=== PATIENT | female | born 1975 | race Caucasian/White ===

== ENCOUNTER 2018-03-29 11:21 | Emergency (ER) | payer MEDICAID, OTHER ==
[2018-03-29] MEDS: SOD CHLORIDE 0.9% 1,000 ML IV (13:18)
[2018-03-29] MEDS: DEXAMETHASONE 10 MG/ML 1 ML INJ IV (13:18)
[2018-03-29] MEDS: KETOROLAC 30 MG INJ IV (13:19)
[2018-03-29] MEDS: CLINDAMYCIN 600 MG/D5W (PMX) 50 ML IVPB (13:38)
== END 2018-03-29 14:35 | disposition home or self-care (01) ==
LOC: FTE 11:21
DX: J02.9 Acute pharyngitis, unspecified (principal)
CPT/HCPCS: 36415; 96374; 96375; 99284-25

== ENCOUNTER 2018-04-01 09:35 | Emergency (ER) | payer MEDICAID ==
[2018-04-01] MEDS: ONDANSETRON 4 MG INJ IV (11:31)
[2018-04-01] MEDS: morphine 4 MG/ML VIAL IV (11:31)
[2018-04-01 11:40] LABS: ADD MAN DIFF? NO
[2018-04-01 11:43] LABS: BASOPHIL # 0.1 10^3/ul (0.0-0.1); BASOPHILS % 0.9 % (0.0-2.0); EOSINOPHILS # 0.1 10^3/ul (0.0-0.5); EOSINOPHILS % 1.2 % (0.0-7.0); HEMATOCRIT 40.4 % (37.0-47.0); HEMOGLOBIN 13.2 g/dl (12.0-16.0); LYMPHOCYTES # 2.5 10^3/ul (0.8-2.9); LYMPHOCYTES % 44.3 % (15.0-51.0); MEAN CORPUSCULAR HEMOGLOBIN 27.2 pg (29.0-33.0); MEAN CORPUSCULAR HGB CONC 32.7 g/dl (32.0-37.0); MEAN CORPUSCULAR VOLUME 83.3 fl (82.0-101.0); MONOCYTE # 0.6 10^3/ul (0.3-0.9); MONOCYTES % 10.7 % (0.0-11.0); NEUTROPHIL # 2.4 10^3/ul (1.6-7.5); NEUTROPHILS % 42.7 % (39.0-77.0); PLATELET COUNT 398 10^3/UL (140-415); RED BLOOD COUNT 4.85 10^6/ul (4.20-5.40); RED CELL DISTRIBUTION WIDTH 13.8 % (11.5-14.5)
[2018-04-01 11:43] LABS: WHITE BLOOD COUNT 5.7 10^3/ul (4.8-10.8)
[2018-04-01 11:46] LABS: ADD UMIC YES; UR ASCORBIC ACID NEGATIVE (NEGATIVE); UR BACTERIA FEW /HPF (NONE SEEN); UR BILIRUBIN (Dip) NEGATIVE (NEGATIVE); UR BLOOD (Dip) NEGATIVE (NEGATIVE); UR CLARITY CLEAR (CLEAR); UR COLOR STRAW (YELLOW); UR GLUCOSE (Dip) NEGATIVE (NEGATIVE); UR KETONES (Dip) NEGATIVE (NEGATIVE); UR LEUKOCYTE ESTERASE (Dip) TRACE Leu/ul (NEGATIVE); UR NITRITE (Dip) NEGATIVE (NEGATIVE); UR RBC 0 /HPF (0-5); UR SPECIFIC GRAVITY (Dip) 1.005 (1.003-1.030); UR TOTAL PROTEIN (Dip) NEGATIVE (NEGATIVE); UR UROBILINOGEN (Dip) NEGATIVE (NEGATIVE); UR WBC 1 /HPF (0-5)
[2018-04-01 11:58] LABS: LACTIC ACID 0.9 mmol/L (0.5-2.0)
[2018-04-01 12:03] LABS: ALANINE AMINOTRANSFERASE 28 IU/L (13-69); ALBUMIN 4.4 g/dl (3.3-4.9); ALKALINE PHOSPHATASE 83 IU/L (42-121); ANION GAP 16 (8-16); ASPARTATE AMINO TRANSFERASE 25 IU/L (15-46); BILIRUBIN,INDIRECT 0.4 mg/dl (0-1.1); BILIRUBIN,TOTAL 0.4 mg/dl (0.2-1.3); BLOOD UREA NITROGEN 8 mg/dl (7-20); CALCIUM 9.1 mg/dl (8.4-10.2); CARBON DIOXIDE 27 mmol/L (21-31); CHLORIDE 105 mmol/L (97-110); CREATININE 0.58 mg/dl (0.44-1.00); GLUCOSE 91 mg/dl (70-220); LIPASE 48 U/L (23-300); SODIUM 144 mmol/L (135-144); TOTAL PROTEIN 8.4 g/dl (6.1-8.1)
[2018-04-01] MEDS: IOHEXOL 300MG/ML 150 ML BTL (12:27)
[2018-04-01] MEDS: SOD CHLORIDE 0.9% 100 ML (12:27)
== END 2018-04-01 13:54 | disposition home or self-care (01) ==
LOC: FTE 09:35
DX: J36 Peritonsillar abscess (principal)
CPT/HCPCS: 36415; 70486; 80053; 81001; 83605; 83690; 85025; 96374; 96375; 99285-25

== ENCOUNTER 2018-12-18 21:25 | Emergency (ER) | payer SELFPAY, MEDICAID ==
[2018-12-19 00:12] LABS: ADD MAN DIFF? NO
[2018-12-19 00:14] LABS: WHITE BLOOD COUNT 7.3 10^3/ul (4.8-10.8)
[2018-12-19 00:14] LABS: BASOPHILS % 0.4 % (0.0-2.0); EOSINOPHILS # 0.2 10^3/ul (0.0-0.5); EOSINOPHILS % 2.5 % (0.0-7.0); HEMATOCRIT 39.3 % (37.0-47.0); LYMPHOCYTES # 3.8 10^3/ul (0.8-2.9); LYMPHOCYTES % 52.3 % (15.0-51.0); MEAN CORPUSCULAR HGB CONC 33.1 g/dl (32.0-37.0); MEAN CORPUSCULAR VOLUME 81.5 fl (82.0-101.0); MEAN PLATELET VOLUME 11.8 fl (7.4-10.4); MONOCYTES % 13.4 % (0.0-11.0); NEUTROPHIL # 2.3 10^3/ul (1.6-7.5); NEUTROPHILS % 31.3 % (39.0-77.0); PLATELET COUNT 225 10^3/UL (140-415); RED BLOOD COUNT 4.82 10^6/ul (4.20-5.40); RED CELL DISTRIBUTION WIDTH 13.5 % (11.5-14.5)
[2018-12-19] MEDS: SOD CHLORIDE 0.9% 1,000 ML IV (00:18)
[2018-12-19] MEDS: ONDANSETRON 4 MG INJ IV (00:18)
[2018-12-19 00:33] LABS: INR 0.88; PARTIAL THROMBOPLASTIN TIME 28.5 Sec (23.0-35.0); PT RATIO 0.9
[2018-12-19 00:48] LABS: ALANINE AMINOTRANSFERASE 22 IU/L (13-69); ALBUMIN 4.6 g/dl (3.3-4.9); ALBUMIN/GLOBULIN RATIO 1.43; ALKALINE PHOSPHATASE 71 IU/L (42-121); ANION GAP 15 (5-13); ASPARTATE AMINO TRANSFERASE 18 IU/L (15-46); BILIRUBIN,INDIRECT 0.1 mg/dl (0-1.1); BILIRUBIN,TOTAL 0.1 mg/dl (0.2-1.3); BLOOD UREA NITROGEN 17 mg/dl (7-20); CALCIUM 10.1 mg/dl (8.4-10.2); CARBON DIOXIDE 26 mmol/L (21-31); CHLORIDE 100 mmol/L (97-110); CREATININE 0.59 mg/dl (0.44-1.00); Estimated GFR > 60 mL/min (>60); GLUCOSE 97 mg/dl (70-220); LIPASE 198 U/L (23-300); POTASSIUM 4.1 mmol/L (3.5-5.1); SODIUM 141 mmol/L (135-144); TOTAL PROTEIN 7.8 g/dl (6.1-8.1)
[2018-12-19] MEDS: FAMOTIDINE 20 MG TAB PO (01:05)
[2018-12-19] MEDS: LIDOCAINE/MYLANTA 40 ML BTL PO (01:05)
[2018-12-19] MEDS: BELLADONNA/PHENOBARBITAL TAB PO (01:06)
[2018-12-19] MEDS: KETOROLAC 15 MG INJ IV (01:07)
[2018-12-19 02:10] LABS: ADD UMIC NO; UR ASCORBIC ACID NEGATIVE (NEGATIVE); UR BILIRUBIN (Dip) NEGATIVE (NEGATIVE); UR BLOOD (Dip) NEGATIVE (NEGATIVE); UR CLARITY CLEAR (CLEAR); UR COLOR COLORLESS (YELLOW); UR GLUCOSE (Dip) NEGATIVE (NEGATIVE); UR KETONES (Dip) NEGATIVE (NEGATIVE); UR LEUKOCYTE ESTERASE (Dip) NEGATIVE Leu/ul (NEGATIVE); UR NITRITE (Dip) NEGATIVE (NEGATIVE); UR SPECIFIC GRAVITY (Dip) 1.004 (1.003-1.030); UR TOTAL PROTEIN (Dip) NEGATIVE (NEGATIVE); UR UROBILINOGEN (Dip) NEGATIVE (NEGATIVE)
== END 2018-12-19 01:56 | disposition home or self-care (01) ==
LOC: E/R 21:25
DX: K29.00 Acute gastritis without bleeding (principal); R40.2142 Coma scale, eyes open, spontaneous, at arrival to emergency department; R40.2362 Coma scale, best motor response, obeys commands, at arrival to emergency department; R40.2252 Coma scale, best verbal response, oriented, at arrival to emergency department; K80.20 Calculus of gallbladder without cholecystitis without obstruction
CPT/HCPCS: 36415; 76705; 80053; 81003; 81025; 83690; 85025; 85610; 85730; 96374; 96375; 99285-25